=== PATIENT | female | born 1990 | race Caucasian/White ===

== ENCOUNTER 2025-09-01 08:54 | Outpatient (AMB) | payer OTHER, MEDICAID, SELFPAY ==
--- NOTE | 2025-09-01 09:02 | OBCLNT_ITS ---
Vital Signs 09/01/25 09:28 Height 1.65 m Height Method Stated Weight 109.316 kg Weight Measurement Method Standing Scale BMI 40.1 BP 112/75 Blood Pressure Source Automatic Cuff Blood Pressure Location Left Upper Arm Position Sitting Respiration 14 Pulse 65 Pulse Source Monitor Temp 97.7 F Temp Source Oral Pulse Oximetry (%) 98 Oxygen Delivery Method Room Air Allergies/Home Meds Allergies & Medications Allergies No Known Allergies Allergy (Verified 09/01/25 09:29) Intake Visit Data Collection New Patient or Established: Established Patient (seen at [facility] within 3 years) Reason for Visit:: INITIAL CARE Seen by Clinical Staff ONLY (RN/MA): No Manufacturing Software Engineer Required: No Do You Feel Safe at Home: Yes Authorities Contacted: N/A PCP or OBGYN visit in last 3 months: Yes Hx Now: Yes Are you currently on any form of Control: No Pain Present Currently: No Pain Scale Used: Renae-Isabel/Numerical Pain scale:: 0 Smoking Status Smoking Status: Never smoker Immunizations Flu Vaccine in the Last 12 Months: Yes Flu Vaccine Exclusion Criteria: Already Received Questionnaires Covid-19 Vaccine Questionnaire Has patient been vacinated for Covid-19 Have you been vacinated for Covid-19: Yes PHQ-9 PHQ-2 Over the last 2 weeks, how often have you been bothered by any of the following problems? 1. Little interest or pleasure in doing things: not at all 2. Feeling down, depressed, or hopeless: not at all Total score: 0 PHQ-9 3. Trouble falling or staying asleep, or sleeping too much: Not at all 4. Feeling tired or having little energy: Not at all 5. Poor appetite or overeating: Not at all 6. Feeling bad about yourself - or that you are a failure or have let yourself or your family down: Not at all 7. Trouble concentrating on things, such as reading the newspaper or watching television: Not at all 8. Moving or speaking so slowly that other people could have noticed? - Or the opposite - being so fidgety or restless that you have been moving around a lot more than usual: not at all 9. Thoughts that you would be better off or of hurting yourself in some way: Not at all Total score: 0 Source: Developed by Drs. Jerrod L. DevoraAlexandra garvin Kurt Kroenke and colleagues, with an educational chelsey from [employer]. 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 She climbs ladders and lifts over 50 pounds working at a [employer]. She is here for OBI. Her last period March 18, 2025. This gives due date December 2025. She has good dates. [facility]. Third tr imester labs with NIPT and carrier screen. Schedule with maternal- medicine for AMA. I am scheduling her an ultrasound now at [facility] for dates. Note for light duty at [facility]. Discussed labor precautions. Increase fluids. Continue prenatals. Return in 4 weeks and we will start disability at 30 weeks. Menstrual History Menstrual reliability: definite Flow: normal Menstrual regularity: regular Monthly: Yes Age at menarche: 12 Associated symptoms (LMP): Reports nausea, vomiting, fatigue and breast tenderness OB History : 2 Para: 1 Hx # Pregnancies: 1 # of Living Children: 1 Delivery History 1st : Child's name: SPEEDY date: 02[birth year] sex: male Gestational age at delivery (weeks): 35 Delivery type: vaginal Delivery complications: NONE History of depression before or after : No Infection History & Risk Evaluation History of STDs: none Genetic Screening & History Genetic Screening/Teratology Counseling - Includes patient, baby's father, or anyone in either family with: 1. Patient's age 35 years or older as of estimated date of delivery: Yes 2. Thalassemia (North Korean, Macanese, Mediterranean, or Background); MCV less than 80: No 3. Neural Tube Defect (Meningomyelocele, Spina Bifida, or Anencephaly): No 4. Congenital Heart Defect: No 5. Down Syndrome: Yes (BABY FATHER NEPHEW) 6. Evert-Sachs (Ashkenazi Restorationism, Cajun, Libyan Childress): No 7. Drake Disease (Ashkenazi Restorationism): No 8. Familial Dysautonomia (Ashkenazi Restorationism): No 9. Sickle Cell Disease or Trait (): No 10. Hemophilia or other blood disorders: No 11. Muscular Dystrophy: No 12. Cystic Fibrosis: No 13. Silverio's Chorea: No 14. Mental Retardation/Autism: No 15. Other inherited genetic or chromosomal disorder: No 16. Maternal Metabolic Disorder (EG,TYPE 1 Diabetes, PKU): No 17. Patient or baby's father had a child with defects not listed above: No 18. Recurrent loss or a stillbirth: No 19. Medications (including supplements, vitamins, herbs or otc drugs)/illicit/recreational drugs/alcohol since last menstrual period: No 20. Any other: No Infection History 1. Live with someone with TB or exposed to TB: No 2. Rash or viral illness since last menstrual period: No 3. Hepatitis B,C: No Other (see comments) Source: [employer] Review of Systems Review of Systems Systems Reviewed: All systems reviewed, normal except as documented Constitutional Constitutional: Reports fatigue Gastrointestinal Gastrointestinal: Reports nausea and Reports vomiting Endocrine Endocrine: Reports fatigue Exam General Limitations: no limitations General Appearance: alert, in no apparent distress, comfortable, cooperative, healthy appearing, well developed and well groomed Head Head exam: atraumatic, normocephalic and normal inspection ENT ENT exam: Present normal exam, normal oropharynx and mucous membranes moist Neck Neck exam: Present normal inspection, full ROM and trachea midline Chest Chest inspection: Present normal inspection and symmetric chest wall rise Resp Respiratory exam: Present normal lung sounds bilaterally Card Cardiovascular exam: Present regular rate, normal rhythm and normal heart sounds Abdominal Abdominal exam: Present soft and normal bowel sounds Psych Psychiatric exam: Present normal affect and normal mood Office Procedures OBC Clinic LOC & Office Proc's Nursing/Assessment Patient Status: Established Patient OB Clinic Nursing Assessment: Medication Reconciliation, Update PMH in EMR and Vital Signs OB Clinic Coordination of Care: AMA, Complex Care and Chronic Disease 1-5, Consent,records obtained, informed consent, Education Simp Pt/Fam, 1 Ins Authorization, Lab and Imaging orders, Results/Orders obtained and Staff clarify orders Special Needs: Heart tones Established Patient Charge Established Patient Point Assignment: 170 Established Patient Point Charge: EP Level 5 (160-above) Assessment & Plan Diagnosis / Problem List (1) Encounter for supervision of high risk in second trimester, antepartum: Status: Acute (2) Advanced maternal age (AMA) in : Status: Acute Plan Note for light duty. Note at next visit for disability at 30 weeks. Schedule with [facility] for dating scan. And then I will make a referral to [facility] with [facility] for advanced maternal age. Third trimester labs and NIPT with carrier screen today. Continue prenatals. Discussed labor precautions. Increase fluids. Return in 4 weeks OB check Additional Plan Follow Up: 4 Weeks (obc)
[2025-09-01 09:28] VITALS: BP 112/75; PULSE 65; RESP 14; TEMP 36.5; O2SAT 98; BMI 40.1
== END 2025-09-01 10:48 | disposition home or self-care (01) ==
PROVIDERS: Supervising Provider Advanced Practice Midwife; Visit Provider Advanced Practice Midwife
DX: O09.522 Supervision of elderly multigravida, second trimester (principal); Z3A.23 23 weeks gestation of pregnancy
CPT/HCPCS: 99215; G0463

== ENCOUNTER 2025-09-27 11:10 | Outpatient (AMB) | payer OTHER, MEDICAID, SELFPAY ==
--- NOTE | 2025-09-27 11:25 | OBCLNT_ITS ---
Vital Signs 09/27/25 11:35 Height 1.65 m Height Method Stated Weight 110.223 kg Weight Measurement Method Standing Scale BMI 40.4 BP 107/70 Blood Pressure Source Automatic Cuff Blood Pressure Location Left Upper Arm Position Sitting Respiration 18 Pulse 98 Pulse Source Monitor Temp 98.2 F Temp Source Oral Pulse Oximetry (%) 98 Oxygen Delivery Method Room Air Allergies/Home Meds Allergies & Medications Allergies No Known Allergies Allergy (Verified 09/27/25 11:25) Medication Reconciliation No Known Home Medications 09/27/25 [History Confirmed 09/27/25] Immunizations Immunizations Flu Vaccine in the Last 12 Months: No Flu Vaccine Exclusion Criteria: No Exclusion Criteria Care OB Visit Log OB Flowsheet Initial Weight: Not Recorded Date -?-?-?-?-?-?-?-?-?-?-?-?- EGA Weight BP Alb Glu CTX Pres Fundal ht FHR Mov Dilation Station Effacement Hx Notes Visit Note 09/01/25 -?-?-?-?-?-?-?-?-?-?-?-?- 23w 6d 109.316 kg 112/75 occasional unknown 23 145 active Patient wants a note for light duty. She climbs ladders and lifts over 50 pounds working at a [employer]. She is here for OBI. Her last period March 18, 2025. This gives due date December 2025. She has good dates. She was seen at [facility] for verification. Third tr imester labs with NIPT and carrier screen. Schedule with maternal- medicine for AMA. I am scheduling her an ultrasound now at [facility] for dates. Note for light duty at [facility]. Discussed labor precautions. Increase fluids. Continue prenatals. Return in 4 weeks and we will start disability at 30 weeks. LIVE Calculator Estimated Delivery Date Method Current WG Current Estimate 12/23/25 LMP (Certain) 27w 4d Notes Visit Date: 09/01/25 Last Updated by: Cira Nielsen CNM 35 yo , LMP 03/18/25. EDC: 12/22/25. OB panel: TSH: wnl, A+,abs-, GC/CT-, rpr:nr, rub imm, HBSAG-,HIV-, HC-, UA/UT-, Office Procedures OBC Clinic LOC & Office Proc's Nursing/Assessment Patient Status: Established Patient OB Clinic Nursing Assessment: Medication Reconciliation, Update PMH in EMR and Vital Signs OB Clinic Coordination of Care: Consent,records obtained, informed consent, Education Simp Pt/Fam, Lab and Imaging orders, Results/Orders obtained and Staff clarify orders Special Needs: Heart tones Established Patient Charge Established Patient Point Assignment: 110 Established Patient Point Charge: EP Level 3 (80-115) Assessment & Plan Diagnosis / Problem List (1) Encounter for supervision of high risk in second trimester, antepartum: Status: Acute (2) Advanced maternal age (AMA) in : Status: Acute Plan Repeat AFP prefers. Follow-up MFM appointment October 17. Discussed labor precautions. Discussed labs. Return OB check 3 weeks
[2025-09-27 11:35] VITALS: BP 107/70; PULSE 98; RESP 18; TEMP 36.8; O2SAT 98; BMI 40.4
== END 2025-09-27 11:59 | disposition home or self-care (01) ==
LOC: HODSOBC 11:10
PROVIDERS: Supervising Provider Advanced Practice Midwife; Visit Provider Advanced Practice Midwife
DX: O09.522 Supervision of elderly multigravida, second trimester (principal); Z3A.27 27 weeks gestation of pregnancy
CPT/HCPCS: 99213; G0463

== ENCOUNTER 2025-10-17 08:44 | Outpatient (AMB) | payer OTHER, MEDICAID, SELFPAY ==
--- NOTE | 2025-10-17 08:55 | AMB.OBPNC ---
Vital Signs 10/17/25 08:56 Height 1.65 m Height Method Stated Weight 113.001 kg Weight Measurement Method Standing Scale BMI 41.5 BP 109/73 Blood Pressure Source Automatic Cuff Blood Pressure Location Left Upper Arm Position Sitting Respiration 16 Pulse 79 Pulse Source Monitor Temp 97.8 F Temp Source Oral Pulse Oximetry (%) 97 Oxygen Delivery Method Room Air Allergies/Home Meds Allergies & Medications Allergies No Known Allergies Allergy (Verified 10/17/25 08:57) Medication Reconciliation vitamins-iron fumarate 66 mg iron-folic acid 1 mg tablet tab PO 10/17/25 [History Confirmed 10/17/25] Immunizations Immunizations Flu Vaccine in the Last 12 Months: Yes Flu Vaccine Exclusion Criteria: Already Received Care OB Visit Log OB Flowsheet Initial Weight: Not Recorded Date <del>?</del> EGA Weight BP Alb Glu CTX Pres Fundal ht FHR Mov Dilation Station Effacement Hx Notes Visit Note 09/01/25 <del>?</del> 25w 3d 109.316 kg 112/75 occasional unknown 23 145 active Patient wants a note for light duty. She climbs ladders and lifts over 50 pounds working at a [employer]. She is here for OBI. Her last period March 18, 2025. This gives due date December 2025. She has good dates. She was seen at [facility] for verification. Third trimester labs with NIPT and carrier screen. Schedule with maternal- medicine for AMA. I am scheduling her an ultrasound now at [facility] for dates. Note for light duty at [facility]. Discussed labor precautions. Increase fluids. Continue prenatals. Return in 4 weeks and we will start disability at 30 weeks. 09/27/25 <del>?</del> 29w 1d 110.223 kg 107/70 absent Third trimester labs were normal. Cystic fibrosis screen was negative. SMA screen negative. NIPT was normal or. Never was not a good sample. Reports good movement. Denies labor, plaints like leaking water, bleeding, contractions Repeat NIPT on Thursday. Discussed labor precautions. Increase fluids. Patient has a follow-up [facility] October 17. 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 I gave a note for limited duty but she still complains back pain and pressure when at work. Patient stands 8 hours a day and goes up and down stairs she like to start disability beginning November 07, 2025. Reports movement. Denies leaking or bleeding. Patient declined Tdap. She reports that she has had the flu vaccine Reviewed NIPT. Start disability November 07, 2025. Discussed labor precautions. Comfort measures for back pain. Okay to use [id number] meds for that. Patient declined Tdap flu. Return in 2 weeks OB check Reviewed NIPT. Start disability November 07, 2025. Discussed labor precautions. Comfort measures for back pain. Okay to use [id number] meds for that. Patient declined Tdap flu. Return in 2 weeks OB check. f/u growth sono [place] to confirm dates LIVE Calculator Estimated Delivery Date Method Current WG Current Estimate 12/12/25 Ultrasound #1 32w 0d Other Estimates 12/23/25 LMP (Certain) 30w 3d 12/12/25 Manual 32w 0d final live: 54% Notes Visit Date: 10/17/25 Last Updated by: Cira Nielsen CNM 10/17: NIPT-/male sono 09/08: 26w3, EDC: 12/12/25. change dates,TIFFANI wnl,no previa Visit Date: 09/27/25 Last Updated by: Cira Nielsen CNM 3rd tri labs wnl. , NIPT. not ran, poor sample Visit Date: 09/01/25 Last Updated by: Cira Nielsen CNM 35 yo , LMP 03/18/25. EDC: 12/22/25. OB panel: TSH: wnl, A+,abs-, GC/CT-, rpr:nr, rub imm, HBSAG-,HIV-, HC-, UA/UT-, Office Procedures OBC Clinic LOC & Office Proc's Nursing/Assessment Patient Status: Established Patient OB Clinic Nursing Assessment: Medication Reconciliation, Update PMH in EMR and Vital Signs OB Clinic Coordination of Care: AMA, Complex Care and Chronic Disease 1-5, Consent,records obtained, informed consent, Education Simp Pt/Fam, 1 Ins Authorization, Lab and Imaging orders, Results/Orders obtained and Staff clarify orders Special Needs: Heart tones Established Patient Charge Established Patient Point Assignment: 170 Established Patient Point Charge: EP Level 5 (160-above) Assessment & Plan Diagnosis / Problem List (1) Encounter for supervision of high risk in third trimester, antepartum: Status: Acute Plan Discussed ultrasound and dates. Discussed labor precautions. Kick count twice a day. Start disability November 07 tetanus next visit. Return in 2 weeks OB check Additional Plan Follow Up: 2 Weeks (obc)
[2025-10-17 08:56] VITALS: BP 109/73; PULSE 79; RESP 16; TEMP 36.6; O2SAT 97; BMI 41.5
== END 2025-10-17 09:46 | disposition home or self-care (01) ==
LOC: HODSOBC 08:44
PROVIDERS: Supervising Provider Advanced Practice Midwife; Visit Provider Advanced Practice Midwife
DX: O09.523 Supervision of elderly multigravida, third trimester (principal); O09.893 Supervision of other high risk pregnancies, third trimester; O99.891 Other specified diseases and conditions complicating pregnancy; M54.9 Dorsalgia, unspecified; Z3A.32 32 weeks gestation of pregnancy; Z28.21 Immunization not carried out because of patient refusal
CPT/HCPCS: 99215; G0463